=== PATIENT | male | born 1985 | race Caucasian/White ===

== ENCOUNTER 2022-06-03 04:00 | Emergency (ER) | payer MEDICARE, MEDICAID ==
[~2022-06-03] VITALS: Ht 170.2 cm; Wt 77.3 kg
[2022-06-03] MEDS ORDERED: quetiapine 100mg tablet PO SCH (05:15)
[2022-06-03] MEDS ORDERED: thiamine 100mg tablet PO ONE (05:15)
[2022-06-03] MEDS ORDERED: folic acid 1mg tablet PO ONE (05:15)
[2022-06-03] MEDS ORDERED: chlordiazePOXIDE 25mg capsule PO ONE (05:15)
[2022-06-03 05:49] VITALS: BP 143/96
== END 2022-06-03 05:54 | disposition home or self-care (01) ==
LOC: ER 04:02
DX: F10.129 Alcohol abuse with intoxication, unspecified (principal); G47.00 Insomnia, unspecified; Y90.9 Presence of alcohol in blood, level not specified; Z59.00 Homelessness unspecified
CPT/HCPCS: 99284